=== PATIENT | male | born 1960 | race Caucasian/White ===

== ENCOUNTER 2017-01-07 14:59 | Emergency (ER) | payer BC, OTHER ==
[~2017-01-07] VITALS: Ht 172.7 cm; Wt 49.9 kg
--- NOTE | ~2017-01-07 | EKG ---
[address] [place] [address] [facility] [place] [address] ELECTROCARDIOGRAM REPORT Name: KIRTI BUNN Room #: MIMA Coto#: [id number] Admission: 01/07/17 Attend Phys: Discharge: 01/07/17 Date of : 62 Report #: [id number] THIS REPORT FOR: //name// [facility] ED Test Date: 2017-01-07 Test Time: 15:04:08 Pat Name: KIRTI BUNN Department: Room: Gender: M Dispensing Optician: DOROTHY : 1960 Requested By: Rosey Velazquez Order Number: [id number] MD: Esdras French Measurements Intervals [place] Rate: 72 P: 84 CT: 145 QRS: 90 QRSD: 105 T: 73 QT: 417 QTc: 457 Interpretive Statements Sinus rhythm Borderline right axis deviation Probable left ventricular hypertrophy Baseline wander in lead(s) V4 No previous ECG available for comparison Electronically Signed On 01-07-2017 21:25:05 CDT by Esrdas French [email or web address] <ELECTRONICALLY SIGNED> By: Esdras French MD 01/07/17 2125 1504 1504 Esdras French MD /ALBERTINA
[2017-01-07] MEDS ORDERED: LIPITOR10 MG PO (15:04)
[2017-01-07] MEDS ORDERED: LISINOPRIL2.5 MG PO (15:05)
[2017-01-07 15:18] LABS: HEMATOCRIT 42.3 % (42.0-52.0); HEMOGLOBIN 14.2 gm/dL (14.0-18.0); MCH 28.8 pg (26.0-34.0); MCHC 33.5 g/dL (28.0-37.0); MCV 85.8 fL (80.0-100.0); PLATELET COUNT 182 thou/uL (150-400); RBC 4.94 mil/uL (4.50-6.00); RDW 14.1 % (10.5-14.5); WBC 8.5 thou/uL (4.0-11.0)
[2017-01-07 15:21] LABS: MANUAL DIFF YES
[2017-01-07 15:32] LABS: ANION GAP 5 mmol/L (7-16); BUN 23 mg/dL (7-18); CALCIUM 8.9 mg/dL (8.5-10.1); CHLORIDE 102 mmol/L (98-107); CO2 29 mmol/L (21-32); GLUCOSE 131 mg/dL (74-106); SODIUM 136 mmol/L (136-145)
[2017-01-07 15:41] LABS: TROPONIN-I < 0.04 ng/mL (<0.04-0.07)
[2017-01-07 16:14] VITALS: BP 102/68
[2017-01-07 17:01] LABS: TOTAL CELL COUNT 100
[2017-01-07 17:02] LABS: ANISOCYTOSIS 1+; MICROCYTES SLIGHT
== END 2017-01-07 16:57 | disposition home or self-care (01) ==
LOC: ER 14:59
PROVIDERS: Emergency Medicine
DX: R55 Syncope and collapse (principal); R11.2 Nausea with vomiting, unspecified; N28.9 Disorder of kidney and ureter, unspecified